=== PATIENT | female | born 1955 | race Caucasian/White ===

== ENCOUNTER 2023-03-28 07:28 | Day surgery (SDC) | payer MEDICARE, OTHER ==
[~2023-03-28] VITALS: Ht 165.1 cm; Wt 71.4 kg
[~2023-03-28 07:28] MED LIST: LIPITOR10 MG PO
[2023-03-28 07:49] VITALS: BP 122/79
--- NOTE | 2023-03-28 08:37 | NUR ---
PT ALERT, ORIENTED AND ABLE TO CONNECT WITH PT BEFORE RN BEGINS PREP. PT LAMENTS THE FACT THAT SHE BELIEVES IT'S BEEN TOO LONG SINCE HER LAST SCOPE. GAVE ENCOURAGEMENT, PT REQUESTED PRAYER, WILL FOLLOW
--- NOTE | 2023-03-28 09:11 | NUR ---
03/28/23 0911 Glo Hung 0906-PT TO PACU IN SUPINE POSITION. EYES OPEN BUT DROWSY. BREATHING EASY AND UNLABORED. SPO2 >95% ON 2 L O2 VIA NC. O2 TITRATED DOWN TO ROOM AIR. PT DENIES PAIN AND REPOSITIONS SELF TO LL POSITON. PT EDUCATED ON POC FOR PACU AND ENCOURAGED TO PASS GAS. 0911- PT PASSING GAS AND SLEEPING. BREATHING EASY AND UNLABORED. SPO2 >95% ON ROOM AIR.
[2023-03-28 09:46] VITALS: BP 101/68
--- NOTE | 2023-03-28 09:48 | OR ---
[facility] [address], [place] [address] Signed DATE OF OPERATION: 03/28/2023 SURGEON: Jalil Zelaya MD PREOPERATIVE DIAGNOSIS: Colon screening. POSTOPERATIVE DIAGNOSIS: Small mucosal lesion left colon, probable hyperplastic polyp. PROCEDURE: Total colonoscopy to the cecum with cold morcellation polypectomy x1. ANESTHESIA: Intravenous sedation; fentanyl 100 mcg and Versed 4 mg. INDICATION: This 68-year-old white woman is a patient of Susan Lowry PA-C in [place], [place]. She last underwent colonoscopy elsewhere in 2009, which was said to be normal. She has no current symptoms of bleeding, diarrhea or constipation. She has no family history of colon cancer. She understands the risk of bleeding, infection, and perforation related to colonoscopy and wished to proceed. FINDINGS: The prep was excellent. Complete colonoscopy was undertaken to the cecum without question. There was a small hyperplastic lesion of the left colon which was excised with cold morcellation technique. The remaining colon was normal. DESCRIPTION OF PROCEDURE: The patient was brought to the endoscopy suite and placed in the lateral decubitus position, given intravenous sedation to the point of slurred speech and nystagmus with full cardiopulmonary monitoring. Digital rectal examination was normal. An Olympus video colonoscope was passed in the rectum and manipulated throughout the colon ultimately intubating the cecum itself. The prep was notably quite good. The scope was withdrawn from that point and examination throughout showed no sign of abnormality until the mid descending colon where a small mucosal lesion suggestive of hyperplastic polyp was noted. It was not typical of an adenomatous polyp. This lesion was excised with cold morcellation technique. Further withdrawal of the scope showed no other abnormality including on retroflexed view of the rectum. The scope was removed Electronically Signed By: JALIL ZELAYA MD 03/28/23 0948 PATIENT NAME: FLORECITA MAE OPERATIVE REPORT DATE OF : 55 REPORT #: [id number] PHYSICIAN: JALIL ZELAYA MD PCP: ROSSY HOGUE DO REPORT IS CONFIDENTIAL AND NOT TO BE RELEASED WITHOUT AUTHORIZATION [facility] [address], [place] [address] Signed and the patient was taken to the recovery room in good condition. CONCLUDING DIAGNOSIS: Probable hyperplastic of polyp left colon, excised. PLAN: Recommend repeat colonoscopy in 10 years, sooner if clinically indicated or if the pathology report should happen to show an adenoma, then would recommend five years. She will return to the ongoing care of Susan Lowry PA-C. MD MEENA Casillas/MODL /[id number] cc: Susan Lowry Copies: SUSAN LOWRY ~ Electronically Signed By: JALIL ZELAYA MD 03/28/23 0948 PATIENT NAME: FLORECITA MAE OPERATIVE REPORT DATE OF : 55 REPORT #: [id number] PHYSICIAN: JALIL ZELAYA MD PCP: ROSSY HOGUE DO REPORT IS CONFIDENTIAL AND NOT TO BE RELEASED WITHOUT AUTHORIZATION
--- NOTE | 2023-03-30 16:54 | PATH ---
[facility] [address], [place] [address] Signed SPECIMEN(S): A LEFT MUCOSAL LESION BIOPSY SPECIMEN SOURCE: A. LEFT MUCOSAL LESION BIOPSY CLINICAL HISTORY: Pre: 2011 normal colonoscopy. Post: Left colon mucosal lesion. FINAL PATHOLOGIC DIAGNOSIS: Left colon mucosal lesion biopsy: - Benign colonic mucosa, negative for specific diagnostic abnormality. JVR:sm:[id number] MICROSCOPIC EXAMINATION: Histologic sections of all submitted blocks are examined by light microscopy. These findings, together with the gross examination, support the pathologic diagnosis. GROSS DESCRIPTION: The specimen, labeled and designated "Margarito, left mucosal lesion biopsy," is received in formalin and consists of two prince soft tissue fragments, ranging from 0.1-0.2 cm. Entirely submitted in (A1). VB (under the direct supervision of a pathologist) The Gross Description was prepared using a voice recognition system. The report was reviewed for accuracy; however, sound-alike word errors, addition and/or deletions may occur. If there is any question about this report, please contact Client Services. PERFORMING LABORATORY: The technical component was performed by [facility], [address] [place] [id number] (CLIA# [id number]). Professional interpretation was performed by [facility], [address] [place] [id number] (CLIA#: [id number]). Diagnostician: Bryant Krisnha MD Pathologist Electronically Signed 03/30/2023 Copies: PATIENT NAME: FLORECITA MAE PATHOLOGY DATE OF : 55 REPORT #: [id number] PHYSICIAN: MELINDA PATHOLOGY PCP: ROSSY HOGUE DO REPORT IS CONFIDENTIAL AND NOT TO BE RELEASED WITHOUT AUTHORIZATION [address] [place], [place] [address] Signed ~ PATIENT NAME: FLORECITA MAE PATHOLOGY DATE OF : 55 REPORT #: [id number] PHYSICIAN: MELINDA PATHOLOGY PCP: ROSSY HOGUE DO REPORT IS CONFIDENTIAL AND NOT TO BE RELEASED WITHOUT AUTHORIZATION
== END 2023-03-28 09:56 | disposition home or self-care (01) ==
LOC: OPS 07:28 → DS 07:28 → OPS 08:30 → DS 08:30 → OPS 09:56
PROVIDERS: ATTEND Surgery
PROC: 0DBM8ZZ Excision of Descending Colon, Via Natural or Artificial Opening Endoscopic (ICD-10-PCS; principal; 2023-03-28 08:30)
DX: Z12.11 Encounter for screening for malignant neoplasm of colon (principal); K63.89 Other specified diseases of intestine; Z96.659 Presence of unspecified artificial knee joint
CPT/HCPCS: 99153; G0500; J0690; J2250; J3010; J7121